=== PATIENT | male | born 1985 | race Two or more races ===

== ENCOUNTER 2018-06-14 10:38 | Emergency (ER) | payer MEDICAID ==
[~2018-06-14] VITALS: Ht 175.3 cm; Wt 72.6 kg
[2018-06-14 10:46] VITALS: BP 118/71
== END 2018-06-14 12:32 | disposition home or self-care (01) ==
LOC: ER 10:38
DX: J02.9 Acute pharyngitis, unspecified (principal)
CPT/HCPCS: 70360; 99283; J7040